=== PATIENT | male | born 1955 | race Caucasian/White ===

== ENCOUNTER 2017-05-29 02:47 | Day surgery (SDC) | payer OTHER ==
[2017-05-29] VITALS (7 sets, daily range): BP systolic 89–140; BP diastolic 60–89
[~2017-05-29] VITALS: Ht 185.4 cm; Wt 67.6 kg
[~2017-05-29 02:47] MED LIST: IBU200 PO; LEVO50 PO; LEVO50TA80 PO; LYSI500T34 PO; [UNRECOGNIZED DRUG - CODE] PO
[2017-05-29] MEDS ORDERED: PROPOFOL EMUL(*) 10MG/ML 20 ML 60 ML ONE (06:48)
[2017-05-29] MEDS ORDERED: LIDOCAINE MPF 1% 5 ML VIAL ONE (06:48)
[2017-05-29] MEDS ORDERED: NORMOSOL R SOLN(*) 1000 ML BAG 1,000 ML IV PRN (11:30)
[2017-05-29] MEDS ORDERED: LIDOCAINE/SOD BICARB 8.4% SYR ID ONE (11:30)
== END 2017-05-29 14:05 | disposition home or self-care (01) ==
LOC: OR 02:47
PROVIDERS: ATTEND Family Medicine
DX: Z12.11 Encounter for screening for malignant neoplasm of colon (principal)
CPT/HCPCS: 00812; 45378; J2001; J2704